=== PATIENT | female | born 1990 | race American Indian/Alaskan Native ===

== ENCOUNTER 2021-10-06 18:06 | Emergency (ER) | payer SELFPAY ==
--- NOTE | 2021-10-06 20:54 | XRay Report ---
LEFT FOOT 2 VIEWS INDICATION / CLINICAL INFORMATION: foot pain. COMPARISON: None available. FINDINGS: BONES / JOINT(S): No acute fracture or subluxation. Moderate calcaneal spurring. SOFT TISSUES: No significant abnormality. ADDITIONAL FINDINGS: None. Signer Name: James Portillo MD Signed: 10/06/2021 8:50 PM Workstation Name: [id number]
[2021-10-07] MEDS ORDERED: KETOROLAC 30 MG/1 ML INJ IM ONE (01:58)
[2021-10-07] MEDS ORDERED: predniSONE 20 MG TAB PO ONE (01:58)
--- NOTE | 2021-10-07 02:21 | Emergency Department Report ---
ED Extremity Problem HPI - General Chief complaint: Extremity Injury, Lower Stated complaint: LEFT FOOT INJURY Source: patient Mode of arrival: Ambulatory Limitations: No Limitations - History of Present Illness Initial comments: Patient is a 31-year-old -Thai female with no past medical history who presents to the ED with complaint of acute onset persistent nontraumatic left plantar foot pain and left ankle pain for the last 2 months. Patient states that she wears steel toe boots at work and that she is on her feet most of the time at work. Patient states that the pain is especially worse with bearing weight on the left foot. Patient denies fall, traumatic injury, heavy lifting, chest pain or shortness of breath, fever, chills, nausea and vomiting, low back pain or numbness and tingling or weakness of lower extremities bilaterally. MD Complaint: extremity pain (left plantar foot pain), joint paint (left ankle pain) -: Gradual, month(s) (2) Location: left, lower extremity (foot), other (left plantar foot pain) History of Same: No -: Yes arthralgia, No fever, No associated dyspnea, No associated chest pain Radiation: distal Severity scale (0 -10): 8 Quality: aching, sharp Consistency: constant Improves with: nothing Worsens with: weight bearing, walking, exertion, palpation Associated Symptoms: denies other symptoms, arthralgias (left plantar foot pain). denies: chest pain, shortness of breath, fever, myalgias, rash, other - Related Data Previous Rx's Medication Instructions Recorded Last Taken Type Ibuprofen [Motrin] 800 mg PO Q8HR PRN #30 tablet 10/07/21 Unknown Rx predniSONE [Deltasone] 60 mg PO QDAY #15 tab 10/07/21 Unknown Rx traMADoL [Ultram] 50 mg PO Q6HR PRN #12 tablet 10/07/21 Unknown Rx Allergies Allergy/AdvReac Type Severity Reaction Status Date / Time No Known Allergies Allergy Unverified 10/06/21 19:52 ED Review of Systems ROS: Stated complaint: LEFT FOOT INJURY Other details as noted in HPI Constitutional: denies: chills, fever Eyes: denies: eye pain, eye discharge, vision change ENT: denies: ear pain, throat pain Respiratory: denies: cough, shortness of breath, wheezing Cardiovascular: denies: chest pain, palpitations Endocrine: no symptoms reported Gastrointestinal: denies: abdominal pain, nausea, diarrhea Genitourinary: denies: urgency, dysuria, discharge Musculoskeletal: arthralgia (left plantar foot pain). denies: back pain, joint swelling Skin: denies: rash, lesions Neurological: denies: headache, weakness, paresthesias Psychiatric: denies: anxiety, depression Hematological/Lymphatic: denies: easy bleeding, easy bruising ED Past Medical Hx - Medications Home Medications: Home Medications Medication Instructions Recorded Confirmed Last Taken Type Ibuprofen [Motrin] 800 mg PO Q8HR PRN #30 tablet 10/07/21 Unknown Rx predniSONE [Deltasone] 60 mg PO QDAY #15 tab 10/07/21 Unknown Rx traMADoL [Ultram] 50 mg PO Q6HR PRN #12 tablet 10/07/21 Unknown Rx ED Physical Exam - General Limitations: No Limitations General appearance: alert, in no apparent distress - Head Head exam: Present: atraumatic, normocephalic, normal inspection - Eye Eye exam: Present: normal appearance, PERRL, EOMI Pupils: Present: normal accommodation - ENT ENT exam: Present: normal exam, normal orophraynx, mucous membranes moist, TM's normal bilaterally, normal external ear exam - Neck Neck exam: Present: normal inspection, full ROM. Absent: tenderness - Respiratory Respiratory exam: Present: normal lung sounds bilaterally. Absent: respiratory distress, wheezes, rales, rhonchi, chest wall tenderness, accessory muscle use, decreased breath sounds - Cardiovascular Cardiovascular Exam: Present: regular rate, normal rhythm, normal heart sounds. Absent: systolic murmur, diastolic murmur, rubs, gallop - GI/Abdominal GI/Abdominal exam: Present: soft, normal bowel sounds. Absent: tenderness, guarding, rebound, hyperactive bowel sounds, hypoactive bowel sounds, mass - Extremities Exam Extremities exam: Present: normal inspection, full ROM, tenderness (Palpable left plantar foot tenderness), normal capillary refill. Absent: pedal edema, erica int swelling, calf tenderness - Back Exam Back exam: Present: normal inspection, full ROM. Absent: tenderness, CVA tenderness (R), CVA tenderness (L), muscle spasm - Neurological Exam Neurological exam: Present: alert, oriented X3, CN II-XII intact, normal gait, reflexes normal - Psychiatric Psychiatric exam: Present: normal affect, normal mood - Skin Skin exam: Present: warm, dry, intact, normal color. Absent: rash, cyanosis, urticaria ED Course Vital Signs 10/06/21 19:54 Temperature 98.6 F Pulse Rate 74 Respiratory 16 Rate Blood Pressure 124/84 O2 Sat by Pulse 98 Oximetry ED Medical Decision Making - Radiology Data Radiology results: report reviewed, image reviewed [facility] [address] [place] [address] XRay Report Signed Patient: LATRICE CAGE MR#: [id number] : 1990 Acct:[id number] Age/Sex: 31 / F ADM Date: 10/06/21 Loc: ED Attending Dr: Ordering Physician: AMAYA WHITEHEAD MD Date of Service: 10/06/21 Procedure(s): XR foot 2V LT Accession Number(s): [id number] cc: ED MD VENTURA Fluoro Time In Minutes: LEFT FOOT 2 VIEWS INDICATION / CLINICAL INFORMATION: foot pain. COMPARISON: None available. FINDINGS: BONES / JOINT(S): No acute fracture or subluxation. Moderate calcaneal spur ring. SOFT TISSUES: No significant abnormality. ADDITIONAL FINDINGS: None. Signer Name: James Portillo MD Signed: 10/06/2021 8:50 PM Workstation Name: [id number] Transcribed By: ES Dictated By: James Portillo MD Electronically Authenticated By: James Portillo MD Signed Date/Time: 10/06/212049 DD/ 48 TD/TT: - Medical Decision Making This is a 31-year-old -Thai female with no past medical history who presents to the ED with complaint of acute onset persistent nontraumatic left plantar foot pain and left ankle pain for the last 2 months. Patient states that she wears steel toe boots at work and that she is on her feet most of the time at work. Patient states that the pain is especially worse with bearing weight on the left foot. In the ED, patient is alert and oriented x3 and is not in any distress. Patient was treated for pain in the ED. Left foot x-ray showed no acute fractures or subluxations. Patient was fitted with postop shoe and discharged home on pain medications. Based on the history and physical exam findings, the patient symptoms are likely due to plantar fasciitis of the left heel. Patient's discharged home on pain medications and advised to follow-up w ith her primary care physician in 7 to 10 days for reevaluation or return to the ED immediately if symptoms get worse. - Differential Diagnosis plantar fasccitis; muscle strain; muscle spasm; tendonitis Critical care attestation.: If time is entered above; I have spent that time in minutes in the direct care of this critically ill patient, excluding procedure time. ED Disposition Clinical Impression: Plantar fasciitis of left foot, Calcific tendinitis of left ankle Disposition: HOME / SELF CARE / HOMELESS Is pt being admited?: No Does the pt Need Aspirin: No Condition: Stable Instructions: Tendinitis, [id number], Calcific Tendinitis, Plantar Fasciitis Additional Instructions: Left foot x-ray showed no acute fractures or subluxations. Therefore your symptoms are likely due to a plantar fasciitis of the left heel or tendinitis of left Achilles tendon. Therefore take medications with food, drink plenty of fluids and follow-up with your primary care physician in 5 to 7 days for reevaluation or return to the ED immediately if symptoms get worse. Prescriptions: predniSONE [Deltasone] 60 mg PO QDAY #15 tab Ibuprofen [Motrin] 800 mg PO Q8HR PRN #30 tablet PRN Reason: Pain , Severe (7-10) traMADoL [Ultram] 50 mg PO Q6HR PRN #12 tablet PRN Reason: Pain Referrals: [facility] [Provider Group] - 7-10 days Forms: Work/School Release Form(ED) Time of Disposition: 02:22 Print Language: BOTSWANA[place]
[2021-10-07 03:28] VITALS: BP 132/86
== END 2021-10-07 03:21 | disposition home or self-care (01) ==
LOC: ED 18:06
DX: M72.2 Plantar fascial fibromatosis (principal); M65.262 Calcific tendinitis, left lower leg; Z79.899 Other long term (current) drug therapy
CPT/HCPCS: 73620; 96372; 99283; J1885